=== PATIENT | male | born 1980 | race Caucasian/White ===

== ENCOUNTER 2018-11-08 19:52 | Emergency (ER) | payer BC ==
--- NOTE | 2018-11-08 20:37 | RAD ---
CHEST TWO VIEW 11/08/18 HISTORY: Cough. COMPARISON: None. FINDINGS: The lungs are clear. No pneumothorax or effusion. Cardiac silhouette and mediastinal contours are wit hin normal limits. Mild bronchiectasis in the left lower lobe. IMPRESSION: Bronchiectasis in the left lower lobe may be postinfectious. No acute air space consolidation. POS: [id number]
== END 2018-11-08 21:33 | disposition home or self-care (01) ==
LOC: ERS 19:52
DX: J20.9 Acute bronchitis, unspecified (principal); F17.210 Nicotine dependence, cigarettes, uncomplicated; Z71.6 Tobacco abuse counseling
CPT/HCPCS: 71046; 87081; 87430; 99406

== ENCOUNTER 2020-05-19 06:02 | Emergency (ER) | payer BC ==
[2020-05-19] MEDS ORDERED: Ondansetron ODT 8 MG TAB ONE (06:25)
== END 2020-05-19 07:10 | disposition home or self-care (01) ==
LOC: ERS 06:02
DX: R19.7 Diarrhea, unspecified (principal); R10.9 Unspecified abdominal pain; F17.210 Nicotine dependence, cigarettes, uncomplicated
CPT/HCPCS: 96372; 99283; J0500; Q0162

== ENCOUNTER 2023-09-18 05:31 | Emergency (ER) | payer BC, SELFPAY ==
[2023-09-18 06:01] LABS: #Basophils 0.1 thou/uL (0.0-0.2); #Eosinphils 0.4 thou/uL (0.0-0.7); #Monocytes 1.5 thou/uL (0.11-0.59); %Basophils 0.6 % (0.0-1.0); %Eosinophils 2.7 % (0.0-10.0); %Lymphocytes 31.2 % (21.0-51.0); %Monocytes 10.3 % (0.0-10.0); %Neutrophils 54.5 % (42.0-75.0); Hematocrit 46.1 % (42.0-52.0); Hemoglobin 15.2 g/dL (14.0-18.0); Mean Corpuscular Hemoglobin 28.6 pg (27.0-31.0); Mean Corpuscular Volume 86.7 fl (78.0-98.0); Mean Platelet Volume 10.3 fL (7.4-10.4); Platelet Count 342 10x3/uL (130-400); RBC Distribution Width 13.9 % (11.5-14.5); Red Blood Cell (RBC) Count 5.32 mill/uL (4.70-6.10); White Blood Cell (WBC) Count 14.7 10x3/uL (4.8-10.8)
[2023-09-18 06:23] LABS: ALT (SGPT) 42 U/L (8-55); AST (SGOT) 20 U/L (5-34); Albumin 4.4 g/dL (3.5-5.0); Alkaline Phosphatase 82 U/L (40-110); Anion Gap 8 mmol/L (10-20); BUN (Urea Nitrogen) 9 mg/dL (8.9-20.6); Bilirubin, Total 0.3 mg/dL (0.2-1.2); Calc. Creatinine Clearance 0 mL/min (70-130); Calcium 9.2 mg/dL (7.8-10.44); Carbon Dioxide 28 mmol/L (22-29); Chloride 107 mmol/L (98-107); Estimated GFR 82; Glucose 120 mg/dL (70-105); Potassium 3.5 mmol/L (3.5-5.1); Protein, Total 7.4 g/dL (6.0-8.3); Sodium 139 mmol/L (136-145)
[2023-09-18 06:28] LABS: Troponin I Less than 0.010 ng/mL (< 0.028)
== END 2023-09-18 08:55 | disposition home or self-care (01) ==
LOC: ERS 05:31
DX: R07.9 Chest pain, unspecified (principal); I10 Essential (primary) hypertension; R20.2 Paresthesia of skin; F17.210 Nicotine dependence, cigarettes, uncomplicated
CPT/HCPCS: 36415; 71045; 80053; 84484; 85025; 93005

== ENCOUNTER 2025-06-21 01:44 | Emergency (ER) | payer BC ==
[2025-06-21] MEDS ORDERED: Ondansetron PF 4 MG/2 ML Vial ONE (02:08)
[2025-06-21 02:17] LABS: #Basophils 0.07 10x3/uL (0.0-0.2); #Eosinophils 0.48 10x3/uL (0.0-0.7); #Monocytes 2.44 10x3/uL (0.11-0.59); #Neutrophils 11.45 10x3/uL (1.40-6.50); %Basophils 0.4 % (0.0-1.0); %Eosinophils 2.7 % (0.0-10.0); %Lymphocytes 17.9 % (21.0-51.0); %Monocytes 13.8 % (0.0-10.0); %Neutrophils 64.6 % (42.0-75.0); Hematocrit 45.0 % (42.0-52.0); Hemoglobin 14.2 g/dL (14.0-18.0); Mean Corpuscular Hemoglobin 26.7 pg (27.0-31.0); Mean Corpuscular Volume 84.7 fL (78.0-98.0); Platelet Count 294 10x3/uL (130-400); Red Blood Cell (RBC) Count 5.31 mill/uL (4.70-6.10); White Blood Cell (WBC) Count 17.72 10x3/uL (4.8-10.8)
[2025-06-21 02:32] LABS: ALT (SGPT) 42 U/L (Less than 45); AST (SGOT) 24 U/L (11-34); Albumin 3.9 g/dL (3.1-4.5); Alkaline Phosphatase 71 U/L (40-110); Anion Gap 16 mmol/L (10-20); BUN (Urea Nitrogen) 15 mg/dL (8.9-20.6); Bilirubin, Total 0.4 mg/dL (0.3-1.2); Calc. Creatinine Clearance 0 mL/min (70-130); Calcium 9.1 mg/dL (7.8-10.44); Carbon Dioxide 22 mmol/L (22-29); Chloride 105 mmol/L (98-107); Globulin 3.0 g/dL (2.4-3.5); Glucose 108 mg/dL (70-105); Lipase 28 U/L (8-78); Potassium 3.6 mmol/L (3.5-5.1); Sodium 139 mmol/L (136-145)
[2025-06-21] MEDS ORDERED: Iopamidol-370 76% 500 ML MDV (1 ML CHARGE) ONE (14:26)
== END 2025-06-21 04:48 | disposition home or self-care (01) ==
LOC: ERS 01:44
DX: K57.32 Diverticulitis of large intestine without perforation or abscess without bleeding (principal); F17.210 Nicotine dependence, cigarettes, uncomplicated
CPT/HCPCS: 74177; 80053; 83605; 83690; 85025; 87040; 96365; 96375; J2270; J2405; J2543; Q9967